=== PATIENT | female | born 2000 | race Caucasian/White ===

== ENCOUNTER 2023-08-06 21:02 | Emergency (ER) | payer BC ==
[~2023-08-06] VITALS: Ht 165.1 cm; Wt 63.6 kg
[2023-08-06 21:11] VITALS: BP 117/78; TEMP 98.1
[2023-08-06] MEDS ORDERED: fentaNYL 50 MCG/ML 2 ML VIAL IV ONE (22:45)
[2023-08-06 23:11] VITALS: PULSE 64
== END 2023-08-06 23:11 | disposition home or self-care (01) ==
LOC: COL.ER 21:02
DX: M79.641 Pain in right hand (principal)
CPT/HCPCS: J3010